=== PATIENT | male | born 1980 | race Caucasian/White ===

== ENCOUNTER 2018-02-21 14:35 | Emergency (ER) | payer SELFPAY ==
[2018-02-21 15:25] VITALS: BP 126/78
[2018-02-21 16:22] LABS: Mean Corpuscular HGB Conc 36 % (32-34); Mean Corpuscular Volume 91 fl (84-94); Platelet Count 219 K/mm3 (140-440); Red Blood Count 5.52 M/mm3 (3.65-5.03); Red Cell Distribution Width 12.6 % (13.2-15.2)
[2018-02-21 16:25] LABS: Hemoglobin 17.8 gm/dl (11.8-15.2)
--- NOTE | 2018-02-21 16:33 | XRay Report ---
FINAL REPORT EXAM: XR CHEST ROUTINE 2V HISTORY: chest pain TECHNIQUE: PA and lateral views of the chest Comparison: None FINDINGS: There is no evidence of infiltrate, pneumothorax or pleural fluid collection. There is an approximately 7.8 millimeter well-defined nodular density projected over the left lower l nehal field. This most likely represents a nipple shadow. However, a pulmonary nodule cannot entirely b e excluded. The cardiomediastinal silhouette is normal in appearance. The bony structures are unremarkable. IMPRESSION: 1. No evidence of an acute pulmonary process. 2. Nodular density projected over the left lower lung field that most likely represents a nipple shad ow. However, a pulmonary nodule cannot entirely be excluded. Repeat imaging with nipple markers may b e helpful for further evaluation.
[2018-02-21] MEDS ORDERED: ALUM-MAG HYDROX-SIMETH 200-200-20MG/5ML PO ONE (16:56)
[2018-02-21] MEDS ORDERED: LIDOCAINE VISCOUS 2% PO ONE (16:56)
[2018-02-21 17:12] LABS: Alanine Aminotransferase 42 units/L (7-56); Albumin 4.6 g/dL (3.9-5); BUN/Creatinine Ratio 11; Blood Urea Nitrogen 10 mg/dL (9-20); Calcium 9.8 mg/dL (8.4-10.2); Hemolysis Index 66
--- NOTE | 2018-02-21 17:27 | Emergency Department Report ---
ED Chest Pain HPI - General Chief Complaint: Chest Pain Stated Complaint: CHEST PAIN/TIGHT LFT SIDE Time Seen by Provider: 02/21/18 15:37 Source: patient, certified court/medical interpreter Mode of arrival: Ambulatory Limitations: Language Barrier - Related Data Previous Rx's Medication Instructions Recorded Last Taken Type Famotidine [Pepcid] 20 mg PO DAILY #30 tablet 02/21/18 Unknown Rx Allergies Allergy/AdvReac Type Severity Reaction Status Date / Time No Known Allergies Allergy Verified 02/21/18 15:25 Heart Score - HEART Score History: Slightly suspicious EKG: Normal Age: < 45 Risk factors: No known risk factors Troponin: < normal limit HEART Score: 0 ED Review of Systems ROS: Stated complaint: CHEST PAIN/TIGHT LFT SIDE Other details as noted in HPI Comment: All other systems reviewed and negative Constitutional: denies: chills Eyes: denies: eye pain ENT: denies: ear pain Respiratory: denies: cough, orthopnea Cardiovascular: as per HPI, chest pain, other (COMPLAINS OF GASSY STOMACH). denies: palpitations, dyspnea on exertion, orthopnea, edema, syncope, paroxysmal nocturnal dyspnea Endocrine: denies: intolerance to cold Gastrointestinal: denies: vomiting Genitourinary: denies: dysuria Skin: denies: lesions Neurological: denies: headache Psychiatric: denies: anxiety Hematological/Lymphatic: denies: easy bleeding ED Past Medical Hx - Past Medical History Previous Medical History?: Yes Additional medical history: GERD - Surgical History Past Surgical History?: No - Social History Smoking Status: Never Smoker Substance Use Type: None - Medications Home Medications: Home Medications Medication Instructions Recorded Confirmed Last Taken Type Famotidine [Pepcid] 20 mg PO DAILY #30 tablet 02/21/18 Unknown Rx ED Physical Exam - General Limitations: Language Barrier General appearance: alert - Head Head exam: Present: atraumatic - Eye Eye exam: Present: normal appearance, PERRL - ENT ENT exam: Present: normal exam, mucous membranes moist - Neck Neck exam: Present: normal inspection, full ROM - Respiratory Respiratory exam: Present: normal lung sounds bilaterally - Cardiovascular Cardiovascular Exam: Present: regular rate, normal heart sounds - GI/Abdominal GI/Abdominal exam: Present: soft, normal bowel sounds - Rectal Rectal exam: Present: deferred - Extremities Exam Extremities exam: Present: normal inspection - Back Exam Back exam: Present: normal inspection - Neurological Exam Neurological exam: Present: alert, oriented X3 - Psychiatric Psychiatric exam: Present: normal affect, normal mood - Skin Skin exam: Present: warm, dry, intact ED Course Vital Signs 02/21/18 15:16 Temperature 97.8 F Pulse Rate 84 Respiratory 18 Rate Blood Pressure 126/78 O2 Sat by Pulse 99 Oximetry BERT score - Bert Score Age > 65: (0) No Aspirin use within the Past 7 Days: (0) No 3 or more CAD Risk Factors: (0) No 2 or more Angina events in past 24 hrs: (0) No Known CAD with more than 50% Stenosis: (0) No Elevated Cardiac Markers: (0) No ST Deviation Greater than 0.5mm: (0) No BERT Score: 0 ED Medical Decision Making - Lab Data Result diagrams: 02/21/18 16:15 02/21/18 16:15 - EKG Data EKG shows normal: sinus rhythm Rate: normal - EKG Data When compared to previous EKG there are: no significant change Interpretation: no acute changes - Radiology Data Radiology results: report reviewed, image reviewed - Medical Decision Making 12 LEAD WNL TROP NEG LABS NOTED GI COCKTAIL WITH RELIEF SUSPECT PAIN IS GI IN ORIGIN Labs 02/21/18 02/21/18 16:15 16:15 WBC 9.1 RBC 5.52 H Hgb 17.8 H Hct 50.0 H MCV 91 MCH 32 MCHC 36 H RDW 12.6 L Plt Count 219 Sodium 139 Potassium 3.8 Chloride 99.2 Carbon Dioxide 28 Anion Gap 16 BUN 10 Creatinine 0.9 Estimated GFR > 60 BUN/Creatinine Ratio 11 Glucose 141 H Calcium 9.8 Total Bilirubin 0.50 AST 35 ALT 42 Alkaline Phosphatase 102 Troponin T < 0.010 Total Protein 8.0 Albumin 4.6 Albumin/Globulin Ratio 1.4 Lipase 32 - Differential Diagnosis RO ACS Critical care attestation.: If time is entered above; I have spent that time in minutes in the direct care of this critically ill patient, excluding procedure time. ED Disposition Clinical Impression: Non-cardiac chest pain Disposition: DC-01 TO HOME OR SELFCARE Is pt being admited?: No Does the pt Need Aspirin: No Condition: Stable Instructions: Chest Pain (ED) Additional Instructions: HEART TESTS ALL NORMAL TODAY CHEST XRAY NORMAL TODAY HYDRATE WELL WITH WATER MOTRIN OR TYLENOL FOR PAIN MED ORDERED TODAY DIET TOLERATED AVOID SPICY FOODS FOLLOW UP WITH DOCTORS BELOW-ONE IS PRIMARY CARE THE OTHER CAN DO ADDITIONAL TESTS ON YOU IF YOUR CHEST PAIN PERSISTS Referrals: ALEXA LOYA DO [Primary Care Provider] - 3-5 Days ANGELES-KACI BASSETT MD [Staff Physician] - 3-5 Days Time of Disposition: 17:28
== END 2018-02-21 17:47 | disposition home or self-care (01) ==
LOC: ED 14:35
DX: R07.89 Other chest pain (principal); K21.9 Gastro-esophageal reflux disease without esophagitis
CPT/HCPCS: 36415; 71046; 80053; 83690; 84484; 85027; 93005; 93010